=== PATIENT | female | born 2005 | race Caucasian/White ===

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

== ENCOUNTER 2024-08-07 19:19 | Emergency (ER) | payer BC, OTHER, SELFPAY ==
[2024-08-07] VITALS (7 sets, daily range): BP systolic 104–133; BP diastolic 62–69; PULSE 66–86; RESP 14–17; TEMP 36.6; O2SAT 97–100; BMI 27.4
--- NOTE | 2024-08-07 20:41 | ED.ABDPAIN ---
HPI - Abdominal Pain General Chief Complaint: Abdominal Pain Stated Complaint: Abd Pain Time Seen by Provider: 08/07/24 20:40 Source: patient, RN notes reviewed and old records reviewed Mode of arrival: Ambulatory Limitations: no limitations History of Present Illness HPI narrative: 19-year-old female complaint of left lower quadrant pain with constipation. States alternates between diarrhea and constipation did take MiraLax. Patient notes that she has had abdominal pain on and off in the past. No fevers occasionally gets nausea. Pain can be sort of periumbilical but today was little bit more in the left more intense earlier but has not improved. Patient states she will alternate between diarrhea and constipation. Her description she will have episodes of diarrhea no black or bloody stools but watery followed by episodes where she does not have a bowel movement for several days. No hard or pebbly stools appreciated. She denies any back or flank pain. No dysuria, urgency or frequency. Gets regular menses and had completed her menstrual cycle about 2 days ago. She notes she has been told she was anemic in the past several years ago she takes iron intermittently but not regularly. Has not had any prior surgeries no other daily prescription medications. No tobacco or alcohol. Mom has celiac disease. Patient has not been tested does have primary care provider but has not seen her in the last year. They have I attempted some elimination diets but patient and mom states she was not consistent with them. Patient presents today because pain was much worse than typical. Related Data Home Medications Medication Instructions Recorded Confirmed No Known Home Medications 08/07/24 08/07/24 Allergies Allergy/AdvReac Type Severity Reaction Status Date / Time penicillin G Allergy Mild Verified 08/07/24 19:31 Review of Systems Review of Systems ROS Unobtainable: All systems reviewed & are unremarkable except as noted in HPI and below Patient History Social History Smoking Status: Never smoker Smoking Status: Never smoker Exam Narrative Exam Narrative: GENERAL: Alert and oriented x three, mild distress HEENT: Head normocephalic, atraumatic, EOMI, pupils reactive, face symmetric, moist mucous membranes NECK: Supple, full range of motion CARDIOVASCULAR: Regular rate and rhythm without murmurs, rubs or gallops. RESPIRATORY: Breath sounds equal bilaterally, no wheezes rales or rhonchi. ABDOMEN: Soft, nontender. Nondistended. Normoactive bowel sounds all 4 quadrants. No guarding or rebound, rigidity, no mass : No CVA tenderness EXTREMITIES: Normal range of motion, no clubbing or edema. Neurovascularly intact NEUROLOGICAL: Cranial nerves II through XII grossly intact. Moving all extremities SKIN: Warm, dry, no petechiae, no rashes or lesions. Initial Vital Signs Initial Vital Signs: Vital Signs Blood Pressure 133/62 08/07/24 19:27 Course Orders Ordered: ED Orders 08/07/24 21:08 XR abdomen min 2V Stat 08/07/24 21:16 Complete Blood Count AUTO DIFF Stat Comprehensive Metabolic Panel Stat Lipase Stat Discontinued Medications Acetaminophen (Acetaminophen 325 Mg Tablet) 975 mg PO NOW ONE Stop: 08/07/24 21:08 Last Admin: 08/07/24 21:24 Dose: 975 mg Documented By: ANNITA Vital Signs Vital signs: Vital Signs - 8 hr 08/07/24 22:09 Pulse Rate 74 Respiratory Rate 14 Blood Pressure 104/69 Pulse Oximetry 98 Oxygen Delivery Method Room Air MDM - Abdominal Pain Lab Data 08/07/24 21:16 08/07/24 21:16 Labs: Lab Results 08/07/24 Range/Units 21:16 WBC 7.0 (4.5-11.0) X10^3/uL RBC 5.10 (4.0-5.2) X10^6/uL Hgb 13.4 (12.0-16.0) g/dL Hct 41.3 (36-46) % MCV 81.0 (80-100) fL MCH 26.3 (26-34) PG MCHC 32.5 (30-36) % RDW 16.4 H (11.6-14.8) % Plt Count 278 (150-400) X10^3/uL Neut % (Auto) 57.6 (50-75) % Lymph % (Auto) 34.0 (25-40) % Giles % (Auto) 5.5 (3-14) % Eos % (Auto) 2.4 (2-4) % Baso % (Auto) 0.5 (0-2) % Neut # (Auto) 4000 (2139-7042) /uL Lymph # (Auto) 2400 (9647-0174) /uL Giles # (Auto) 400 (0-900) /uL Eos # (Auto) 200 (0-450) /uL Baso # (Auto) 0 (0-100) /uL Sodium 137 (137-145) mmol/L Potassium 4.0 (3.4-5.1) mmol/L Chloride 106 (98-107) mmol/L Carbon Dioxide 23 (22-32) mmol/L BUN 10 (7-17) mg/dL Creatinine 0.81 (0.52-1.04) mg/dL Estimated GFR > 60 (>60) mL/min BUN/Creatinine Ratio 12.3 (6-22) Glucose 103 H (70-100) mg/dL Calcium 9.4 (8.4-10.2) mg/dL Total Bilirubin 0.9 (0.2-1.3) mg/dL AST 34 (14-36) IU/L ALT 26 (<35) IU/L Alkaline Phosphatase 74 (38-126) U/L Total Protein 7.8 (6.3-8.2) g/dL Albumin 4.7 (3.5-5.0) g/dL Globulin 3.1 (1.7-4.1) g/dL Albumin/Globulin Ratio 1.5 (1.0-2.8) Lipase 56 (23-300) U/L Point of care testing: Point of Care Testing Test Results Negative Urine Dip Bedside Urine Glucose Negative Bedside Urine Bilirubin - Negative Bedside Urine Ketone +/- 5 Urine Specific [place] 1.015 Bedside Urine Occult Blood - Negative Bedside Urine pH 6.0 Bedside Urine Protein - Negative Bedside Urine Urobilinogen - Negative Bedside Urine Nitrite - Negative Bedside Urine Leukocytes - Negative Esterase MDM Narrative Medical decision making narrative: 19-year-old female with chronic abdominal issues for the past several years intermittent pain no vomiting does sometimes have diarrheal episodes and then describes constipation but is more not having a bowel movement for several days. Does have a family history of celiac with her mom. Patient has never been tested. They have tried elimination diets but has not been consistent with them. Patient presents today because pain which has resolved now but was worse and caused her to take 2 days off of work. Discussed with the patient's we will obtain labs and x-ray to evaluate for any obstructive process no signs of or urinary infection. If these are normal would recommend follow up with primary care possibly for celiac testing as well as possibly colonoscopy further workup based on family history. This time I do not feel patient requires CT imaging she was has a benign abdominal exam with persistent symptoms over some time and feel risks versus benefit is not worth radiation exposure. Discussed with the patient and her mother they agree with that plan. Labs hemoglobin is 13.4 white count 7 platelets are 278. Labs show glucose of 103 otherwise normal electrolytes, BUN and creatinine, LFTs including bilirubin, AST ALT and lipase are negative. Abdomen X-ray shows no acute change. Point of care urine is negative for as well as blood or leuks has trace ketones. Discharge Plan Departure Patient Disposition: Home Clinical Impression: Abdominal pain Instructions: DI for Abdominal Pain-Adult Activity Restrictions/Additional Instructions: Follow up with your primary care physician for recheck I would recommend talking to them if they feel your appropriate for testing for celiac disease and/or colonoscopy. In the meantime I would recommend trying an elimination diet particularly for gluten since you have a family history of celiac. Please call to set up follow up with your physician. You can continue with the acetaminophen and/ibuprofen as needed for pain. Please return if you develop fevers, rapidly worsening pain, vomiting, black or bloody stools, lightheadedness or passing out or other new or concerning changes. Prescriptions: No Action No Known Home Medications Referrals: Jahaira Hawley PA-C [Primary Care Provider] - Stand Alone Forms: Patient Portal/API/Survey
--- NOTE | 2024-08-07 21:08 | DI.RAD.S_ITS ---
PROCEDURE: XR ABDOMEN MIN 2V INDICATIONS: intermittent abd pain, diarrhea/constipation alternating. TECHNIQUE: 2 views of the abdomen were acquired. COMPARISON: None. FINDINGS: Surgical changes and devices: None. Bowel: No pneumoperitoneum. Gaseous distension of the stomach. Normal quantity of gas in the colon. No dilated air-filled small bowel loops. Normal amount of colonic stool. Soft tissues: No masses; visualized solid organ contours appear normal in size. No suspicious abdominal calcifications. Bones: No suspicious bony abnormalities. IMPRESSION: Non-obstructive bowel gas pattern. Dictated by: Ashley Kelly M.D. on 08/07/2024 at 21:54 Approved by: Ashley Kelly M.D. on 08/07/2024 at 21:55
[2024-08-07] MEDS: ACETAMINOPHEN 325 MG TABLET 975 MG PO (21:24)
[2024-08-07 21:29] LABS: Add Manual Diff / Slide Review NO; Basophils Absolute Auto 0 /uL (0-100); Basophils Percent Auto 0.5 % (0-2); Eosinophils Absolute Auto 200 /uL (0-450); Eosinophils Percent Auto 2.4 % (2-4); Hematocrit 41.3 % (36-46); Hemoglobin 13.4 g/dL (12.0-16.0); Lymphocytes Absolute Auto 2400 /uL (1100-4500); Mean Corpuscular HGB Conc 32.5 % (30-36); Mean Corpuscular Hemoglobin 26.3 PG (26-34); Monocytes Absolute Auto 400 /uL (0-900); Monocytes Percent Auto 5.5 % (3-14); Neutrophils Absolute Auto 4000 /uL (1500-7000); Neutrophils Percent Auto 57.6 % (50-75); Platelet Count 278 X10^3/uL (150-400); Red Cell Distribution Width 16.4 % (11.6-14.8)
[2024-08-07 21:43] LABS: Alanine Aminotransferase 26 IU/L (<35); Albumin 4.7 g/dL (3.5-5.0); Albumin Globulin Ratio 1.5 (1.0-2.8); Alkaline Phosphatase 74 U/L (38-126); Aspartate Aminotransferase 34 IU/L (14-36); BUN Creatinine Ratio 12.3 (6-22); Bilirubin Total 0.9 mg/dL (0.2-1.3); Blood Urea Nitrogen 10 mg/dL (7-17); Calcium 9.4 mg/dL (8.4-10.2); Carbon Dioxide 23 mmol/L (22-32); Chloride 106 mmol/L (98-107); Estimated Glomerular Filt Rate > 60 mL/min (>60); Globulin 3.1 g/dL (1.7-4.1); Glucose 103 mg/dL (70-100); HEMOLYSIS < 15 (0-50); Lipase 56 U/L (23-300); Sodium 137 mmol/L (137-145); Total Protein 7.8 g/dL (6.3-8.2)
== END 2024-08-07 22:20 | disposition home or self-care (01) ==
PROVIDERS: Emergency Provider Emergency Medicine; PCP Physician Assistant
DX: R10.32 Left lower quadrant pain (principal); K59.00 Constipation, unspecified
CPT/HCPCS: 36415; 74019; 80053; 81003; 81025; 83690; 85025; 99284